=== PATIENT | female | born 1960 | race Caucasian/White ===

== ENCOUNTER → 2017-07-16 | Outpatient (CLI) | payer OTHER | END | disposition home or self-care (01) | LOC: CVU 07:37 | PROVIDERS: ATTEND Internal Medicine Cardiovascular Disease | DX: I10 Essential (primary) hypertension (principal); I87.2 Venous insufficiency (chronic) (peripheral); I73.9 Peripheral vascular disease, unspecified; E11.9 Type 2 diabetes mellitus without complications; E55.9 Vitamin D deficiency, unspecified; Z87.891 Personal history of nicotine dependence | CPT/HCPCS: 93306; 93922; 93978 ==

== ENCOUNTER → 2018-07-22 | Outpatient (CLI) | payer OTHER | END | disposition home or self-care (01) | LOC: CFH 13:46 | PROVIDERS: ATTEND Genetic Counselor, MS | DX: N64.4 Mastodynia (principal) | CPT/HCPCS: 76642; 77066 ==

== ENCOUNTER 2019-08-14 12:04 | Outpatient (CLI) | payer OTHER | END 2019-08-14 23:59 | disposition home or self-care (01) | LOC: CFH 12:04 | PROVIDERS: ATTEND Genetic Counselor, MS | DX: Z12.31 Encounter for screening mammogram for malignant neoplasm of breast (principal) | CPT/HCPCS: 77063; 77067 ==

== ENCOUNTER 2020-01-31 16:34 | Emergency (ER) | payer OTHER ==
[~2020-01-31] VITALS: Ht 170.2 cm; Wt 116.7 kg
--- NOTE | 2020-01-31 17:40 | NUR ---
LEFT ABDOMINAL PAIN, CONTINUOUS AND SOMETIMES SHARP. PT STATES SHE COULD NOT LIE ON HER RIGHT SIDE LAST NIGHT AND THAT SHE WAS UP MULTIPLE TIMES TO VOID. DENIES DYSURIA
[2020-01-31] MEDS ORDERED: ONDANSETRON 2MG/ML, 2ML IVPush ONE (18:00)
[2020-01-31] MEDS ORDERED: SODIUM CHLORIDE FLUSH 10ML SYR IVF ONE (18:00)
[2020-01-31] MEDS ORDERED: MORPHINE SULFATE 4 MG/ML, 1ML IVPush PRN (18:00)
[2020-01-31 18:13] LABS: MICROSCOPIC NOT IND
[2020-01-31 18:18] LABS: CULTURE INDICATED? NO
--- NOTE | 2020-01-31 18:26 | NUR ---
DECLINES MORPHINE FOR PAIN AND STATES NO NAUSEA AT THIS TIME
[2020-01-31 18:30] LABS: BASOPHILS # (AUTO) 0.05 x10^3/uL (0-0.1); BASOPHILS % (AUTO) 0 % (0-1); EOSINOPHILS # (AUTO) 0.24 x10^3/uL (0-0.4); EOSINOPHILS % (AUTO) 2 % (1-7); LYMPHOCYTES # (AUTO) 3.57 x10^3/uL (1-3.4); LYMPHOCYTES % (AUTO) 31 % (22-44); MD NO; MEAN CORPUSCULAR HEMOGLOBIN 29.8 pg (27.0-34.8); MEAN CORPUSCULAR VOLUME 87.7 fL (80-100); MEAN PLATELET VOLUME 10.1 fL (7.4-10.4); MONOCYTES # (AUTO) 1.25 x10^3/uL (0.2-0.8); MONOCYTES % (AUTO) 11 % (2-9); NEUTROPHILS % (AUTO) 56 % (42-75); PLATELET COUNT 193 x10^3/uL (130-400); RED BLOOD COUNT 4.67 x10^6/uL (3.82-5.3); RED CELL DISTRIBUTION WIDTH 13.6 % (9.6-15.2)
[2020-01-31 18:37] LABS: ALANINE AMINOTRANSFERASE 30 U/L (12-78); ALBUMIN 3.1 g/dL (3.4-5.0); ANION GAP 8 mmol/L (5-15); CALCIUM 9.3 mg/dL (8.5-10.1); CHLORIDE 105 mmol/L (98-107); CREATININE 0.87 mg/dL (0.55-1.02)
[2020-01-31 18:39] LABS: ALKALINE PHOSPHATASE 79 U/L (45-117); BILIRUBIN,TOTAL 0.3 mg/dL (0.2-1.0); TOTAL PROTEIN 7.2 g/dL (6.4-8.2)
--- NOTE | 2020-01-31 18:57 | NUR ---
REPORT FROM KARINA MEDRANO. PT AT CT AT THIS TIME.
[2020-01-31] MEDS ORDERED: OMNIPAQUE 350 MG/ML, 100ML BOTTLE ONE (19:10)
--- NOTE | 2020-01-31 19:13 | NUR ---
PT BACK FROM CT. [PT UP TO BATHROOM WITH A STEADY GAIT.
[2020-01-31] MEDS ORDERED: METRONIDAZOLE PMX 500MG/100ML 100 ML ONE (19:46)
[2020-01-31] MEDS ORDERED: CIPROFLOXACIN/PMX 400MG/200ML 200 ML ONE (19:47)
[2020-01-31] MEDS ORDERED: METRONIDAZOLE PMX 500MG/100ML 100 ML IVPB ONE (20:00)
[2020-01-31] MEDS ORDERED: CIPROFLOXACIN/PMX 400MG/200ML 100 ML IVPB ONE (20:00)
--- NOTE | 2020-01-31 20:22 | NUR ---
X RUNNING. EvalveS. PT HAS NO OTHER NEEDS AT THIS TIME. CALL LIGHT IN REACH
[2020-01-31 20:53] VITALS: BP 116/74
--- NOTE | 2020-01-31 22:19 | NUR ---
Patient given discharge instructions and they have confirmed that they understand the instructions. Patient ambulatory with steady gait.
== END 2020-01-31 22:21 | disposition home or self-care (01) ==
LOC: ED 17:56
DX: K57.92 Diverticulitis of intestine, part unspecified, without perforation or abscess without bleeding (principal); R10.32 Left lower quadrant pain; R10.12 Left upper quadrant pain; I10 Essential (primary) hypertension; E11.9 Type 2 diabetes mellitus without complications; Z87.891 Personal history of nicotine dependence
CPT/HCPCS: 36415; 71045; 74177; 80053; 81003; 83690; 85025; 96365; 96367; 99285; J0744; Q9967

== ENCOUNTER → 2020-10-21 | Outpatient (CLI) | payer OTHER | END | disposition home or self-care (01) | LOC: CFH 11:29 | PROVIDERS: ATTEND Genetic Counselor, MS | DX: Z12.31 Encounter for screening mammogram for malignant neoplasm of breast (principal) | CPT/HCPCS: 77063; 77067 ==